=== PATIENT | female | born 1990 | race American Indian/Alaskan Native ===

== ENCOUNTER 2017-01-25 14:37 | Outpatient (CLI) | payer MEDICAID ==
--- NOTE | 2017-01-25 15:52 | Ultrasound Report ---
RIGHT DIGITAL DIAGNOSTIC MAMMOGRAM with CAD and RIGHT BREAST ULTRASOUND: 01/25/17 14:30:00 CLINICAL: 26-year-old with a palpable lump. However, the requisition states mastitis without abscess. COMPARISON:None. FINDINGS: The breast is almost entirely fatty.No mass, suspicious architectural distortion or suspicious calcifications . No mammographic finding at an upper inner palpable marker. Ultrasound of the upper inner right breast was performed and demonstrated a flattened cyst or ectatic duct corresponding to the palpable lump. It is located at 2 o'clock 10 cm from the nipple and measures 9 x 2 x 11 mm. No solid mass. IMPRESSION: A 1.1 cm benign cyst versus short ectatic benign duct at 2 o'clock 10 cm from the nipple. BI-RADS CATEGORY: 2 -- Benign RECOMMENDATION: Clinical follow-up of the palpable area and routine mammographic screening based on ACS guidelines. ACR BI-RADS MAMMOGRAPHIC CODES: 0 = Needs additional imaging evaluation; 1 = Negative; 2 = Benign; 3 = Probably benign; 4 = Suspicious; 5 = Malignant; 6 = Known biopsy-proven malignancy COMMENT: 1. Dense breast tissue, i.e., adenosis, fibrocystic changes, etc., may obscure an underlying neoplasm. 2. Approximately 10% of cancers are not detected with mammography. 3. A negative mammography report should not delay biopsy if a clinically suspicious mass is present. COMMENT: Patient follow-up letters are generated by our [employer] application.
== END 2017-01-25 14:38 | disposition home or self-care (01) ==
LOC: MAMMO 14:37
PROVIDERS: ATTEND Obstetrics & Gynecology
DX: N61.0 Mastitis without abscess (principal); N63 Unspecified lump in breast; Z87.891 Personal history of nicotine dependence
CPT/HCPCS: 76642; G0206

== ENCOUNTER 2018-10-24 20:42 | Inpatient (IN) | payer MEDICAID ==
[2018-10-24] MEDS ORDERED: XYLOCAINE 2% INFILTRATI ONE (22:02)
[2018-10-24] MEDS ORDERED: BRETHINE SUB-Q PRN (22:02)
[2018-10-24] MEDS ORDERED: SUBLIMAZE IV PRN (22:02)
[2018-10-24 22:14] LABS: Hematocrit 33.4 % (30.3-42.9); Mean Corpuscular HGB Conc 33 % (30-34); Mean Corpuscular Volume 78 fl (79-97); Platelet Count 264 K/mm3 (140-440); Red Cell Distribution Width 15.5 % (13.2-15.2)
[2018-10-24] MEDS ORDERED: PITOCin/NS 20 UNIT/1000ML DRIP 20 UNITS/1,000 ML BAG IV SCH (23:00)
--- NOTE | 2018-10-24 23:10 | History and Physical Report ---
History of Present Illness Date of examination: 10/24/18 Date of admission: 10/24/18 20:42 Chief complaint: Here for scheduled induction of labor. History of present illness: 28 year old female here for scheduled induction of labor due to class 3 obesity. Patient has received care at [facility]. Patient states her has been uneventful except for class 3 obesity. Patient states she saw [facility] during her . EDC 10/29/2018. labs are as follows: A+, rubella immune, HIV negative, RPR nonreactive, chlamydia negative, gonorrhea negative, trichomonas negative, GBS negative, hemoglobin electrophoresis negative, HSV 2 IGG negative, hepatitis B surface antigen negative, hepatitis panel negative. 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 denies: smoking, alcohol abuse, prescription drug abuse, IV drug use - Obstetrical History Expected Date of Delivery: 10/29/18 Actual Gestation: 39 Week(s) 2 Day(s) : 5 Para: 3 Hx # Term Pregnancies: 4 Number of Pregnancies: 0 Spontaneous Abortions: 1 Induced : 0 Number of Living Children: 3 Medications and Allergies Allergies Allergy/AdvReac Type Severity Reaction Status Date / Time No Known Allergies Allergy Unverified 05/29/13 10:41 Home Medications Medication Instructions Recorded Confirmed Last Taken Type Ferrous Sulfate [Iron 325 MG] 10/24/18 10/24/18 History Pnv No.95/Ferrous Fum/Folic AC 1 each PO 10/24/18 10/24/18 History [ Formula Tablet] Active Meds: Active Medications Ephedrine Sulfate (Ephedrine Sulfate) 10 mg IV Q2M PRN PRN Reason: Hypotension Fentanyl (Sublimaze) 100 mcg IV Q2H PRN PRN Reason: Labor Pain Lactated Ringer's (Lactated Ringers) 1,000 mls @ 125 mls/hr IV DIRECT RAJAT Oxytocin/Sodium Chloride (Pitocin/Ns 20 Unit/1000ml Drip) 20 units in 1,000 mls @ 125 mls/hr IV DIRECT RAJAT Terbutaline Sulfate (Brethine) 0.25 mg SUB-Q ONCE PRN PRN Reason: Hyperstimulation/Hypertonicity Valacyclovir HCl (Valtrex) 1,000 mg PO BID RAJAT Review of Systems Cardiovascular: no leg edema Genitourinary: no vaginal bleeding, no vaginal discharge, no leakage of fluid Integumentary: other - Vital Signs Vital signs: Vital Signs Pulse BP 100 H 130/77 10/24/18 21:23 10/24/18 21:23 Temp Pulse Resp BP Pulse Ox 98.3 F 83 16 130/77 97 10/24/18 21:25 10/24/18 23:00 10/24/18 21:25 10/24/18 21:25 10/24/18 23:00 - Physical Exam Abdomen: Positive: normal appearance, soft. Negative: distention, tenderness, guarding, rigidity Genitourinary (Female): Negative: perineal/vulvar lesions (small vulvar lesions on righ buttock/perianal arrea (patient states she used NAVARRETE)) Vagina: Positive: normal moisture Uterus: Positive: enlarged Adnexa: left: normal Results Result Diagrams: 10/24/18 21:33 Abnormal lab results 10/24/18 Range/Units 21:33 MCV 78 L (79-97) fl MCH 26 L (28-32) pg RDW 15.5 H (13.2-15.2) % All other labs normal. Assessment and Plan A: at 39 weeks, 2 days gestation. Class 3 obesity. Vulvar lesion. GBS negative. P: Valtrex 1 gram po BID. Discussed with patient lesion in perianal area and culture/labs have been sent but will not have the results right away. Possible sequelae of herpes outbreak discussed with patient in detail. Consulted with Dr. Mayers re: patient. Dr. Mayers states she will examine patient tomorrow. Discussed this plan with patient. Normal BPP and MILTON. NST reactive.
--- NOTE | 2018-10-24 23:49 | Ultrasound Report ---
PROCEDURE: US OB BPP WO NON-STRESS HISTORY: well being FINDINGS: Biophysical profile was performed. Biophysical profile was 8 of 8. cardiac activity is 151 bpm. IMPRESSION: Biophysical profile 8 of 8 This document is electronically signed by Matteo Pérez MD., Oct 24 2018 11:47:58 PM ET
--- NOTE | 2018-10-24 23:49 | Ultrasound Report ---
PROCEDURE: US OB LIMITED HISTORY: MILTON FINDINGS: Real-time ultrasound of the pelvis was performed by transabdominal technique. Amniotic fluid index was 8.0 cm, which is within normal limits. There is a single intrauterine gestation in cephalic lie with cardiac activity of 1 51 bpm. The placenta is anterior and grade 1. IMPRESSION: Amniotic fluid index 8.0 cm This document is electronically signed by Matteo Pérez MD., Oct 24 2018 11:47:24 PM ET
[2018-10-25] MEDS: VALTREX PO SCH ×2 (01:32→12:06)
[2018-10-25] MEDS: LACTATED RINGERS 1,000 ML IV SCH ×4 (01:37→15:04)
--- NOTE | 2018-10-25 01:44 | Event Note ---
Date: 10/25/18 Patient was observed overnight and IOL was not begun due to perianal lesion noted on admission exam. Spontaneous rupture of membranes at 01:10; patient reports she feels contractions. Large amount of clear fluid seen leaking from vagina. Consulted with Dr. Mayers re: SROM. Dr. Mayers states she will do section for patient if patient agrees, due to presence of perianal lesion. Advised patient that Dr. Mayers will perform section. Patient refused section; again discussed with patient in detail the potential sequelae of possible HSV outbreak, including possibility of serious adverse outcomes such as blindness, seizures, mental retardation, or if vaginal occurs with active HSV outbreak (this had all been discussed with patient upon admission as well). Patient states she clearly understands these risks and she states she is willing to assume these risks; patient again refused section. Notified Dr. Mayers that patient refused section and that I have clearly discussed with patient risks of vaginal .
[2018-10-25] MEDS ORDERED: PITOCin/NS 30 UNIT/500ML 30 UNITS/500 ML BAG IV SCH (07:00)
--- NOTE | 2018-10-25 07:00 | Event Note ---
Date: 10/25/18 Contractions have spaced slightly; overnight contractions were every 2-3 minutes per RN. SVE 3-/-1. Patient still refuses section. Discussed with patient risks and benefits of Pitocin augmentation of labor. Patient consented to Pitocin augmentation of labor. Category 1 heart rate tracing.
--- NOTE | 2018-10-25 13:26 | Event Note ---
Date: 10/25/18 [facility] [place] [facility].
--- NOTE | 2018-10-25 13:55 | Event Note ---
Date: 10/25/18 Peds was notified about mother in active labor who has a vaginal lesion suspicious for HSV. Mother is refusing despite extensive counselling by OB team and Peds nurse practitioner. With OB visual coordinator, Elda Alvarenga present, I counselled both mother and father about the risks of HSV after vaginal with primary active vaginal lesions, including the risk of seizures and brain damage. Mother insists that she believes the lesion is as a result of trauma vs infection. I explained that baby will need to remain admitted until we have results from the HSV culture or PCR back which usually takes up to 5 days. Mother absolutely refuses to have her baby remain admitted for that long. She states that she understands the risks and does not believe the lesion is from HSV and therefore refuses to comply with the stated plan of care. Father is in agreement with mother that baby will not remain admitted for 5 days pending culture results. I informed both parents, that I will require at the minimum, collection of blood for HSV PCR and surface HSV cultures and at least 48 hour stay with Fixer Supervisor appointment scheduled and reliable contact information for parents and PCP, prior to baby leaving the hospital. My recommendation remains that baby stays admitted until culture results return, and parents will have to sign their refusal if they do not agree with this plan. Both parents indicated that they understand all the information and mother states she will sign any documents to allow her baby to be discharged after 48 hours.
[2018-10-25] MEDS ORDERED: ZOFRAN IV ONE (14:00)
[2018-10-25] MEDS ORDERED: fentaNYL-BUPIV 2 MCG/ML-0.125% 200 MCG/100 ML BAG EPIDURAL ONE (14:41)
[2018-10-25] MEDS ORDERED: NARCAN 2 MG/2 ML IV PRN (15:04)
--- NOTE | 2018-10-25 15:08 | Anesthesia Consultation ---
Anesthesia Consult and Med Hx Date of service: 10/25/18 - Airway Anesthetic Teeth Evaluation: Good ROM Head & Neck: Adequate Mental/Hyoid Distance: Adequate Mallampati Class: Class III Intubation Access Assessment: Probably Good - Pulmonary Exam CTA: Yes - Cardiac Exam Cardiac Exam: RRR - Pre-Operative Health Status ASA Pre-Surgery Classification: ASA3 Proposed Anesthetic Plan: Epidural - Pulmonary Hx Smoking: No Hx Asthma: No Hx Respiratory Symptoms: No SOB: Yes COPD: No Home Oxygen Therapy: No Hx Pneumonia: No Hx Sleep Apnea: No (snores denies ARCHIE) - Cardiovascular System Hx Hypertension: No Hx Coronary Artery Disease: No Hx Heart Attack/AMI: No Hx Angina: No Hx Percutaneous Transluminal Coronary Angioplasty (PTCA): No Hx Cardia Arrhythmia: No Hx Pacemaker: No Hx Internal Defibrillator: No Hx Valvular Heart Disease: No Hx Heart Murmur: No Hx Peripheral Vascular Disease: No - Central Nervous System Hx Neuromuscular Disorder: No Hx Seizures: No CVA: No Hx Back Pain: Yes Hx Psychiatric Problems: No - Gastrointestinal Hx Ulcer: No Hx Gastroesophageal Reflux Disease: Yes - Endocrine Hx Renal Disease: No Hx End Stage Renal Disease: No Hx Cirrhosis: No Hx Liver Disease: No Hx Insulin Dependent Diabetes: No Hx Non-Insulin Dependent Diabetes: No Hx Thyroid Disease: No Hx Hypothyroidism: No Hx Hyperthyroidism: No - Hematic Hx Anemia: No Hx Sickle Cell Disease: No - Other Systems Hx Alcohol Use: Yes Hx Substance Use: No Hx Cancer: No Hx Obesity: Yes (BMI 49.6)
--- NOTE | 2018-10-25 15:09 | Anesthesia Day of Surgery ---
Anesthesia Day of Surgery - Day of Surgery Patient Examined: Yes Patient H&P Reviewed: Yes Patient is NPO: Yes Beta Blockers: No Cardiac Clearance: No Pulmonary Clearance: No Lai's Test: N/A
--- NOTE | 2018-10-25 15:09 | Post Anesthesia Evaluation ---
- Post Anesthesia Evaluation Patient Participated: Yes Airway Patent: Yes Stable Respiratory Function: Yes Nausea/Vomiting: No Temp > 96.8F: Yes Pain Manageable: Yes Adequeate Hydration: Yes Anesthesia Complications: No Block Receding Appropriately: Yes Patient on Ventilator: No
[2018-10-25] MEDS ORDERED: MILK OF MAGNESIA PO PRN (15:37)
[2018-10-25] MEDS ORDERED: TUCKS PAD TP PRN (15:37)
--- NOTE | 2018-10-25 15:46 | Procedure Note ---
OB Delivery Note - Delivery Date of Delivery: 10/25/18 Surgeon: JYOTI FLORES Estimated blood loss: 200cc - Vaginal Delivery presentation: vertex Delivery position: OA Intrapartum events: other(please specify) (perianal lesion; true knot in cord) Delivery induction: none Delivery augmentation: pitocin Delivery monitor: external FHT, external uterine Route of delivery: Delivery placenta: spontaneous Delivery cord: true knot, 3 umbilical vessels Episiotomy: none Delivery laceration: none Anesthesia: epidural Delivery comments: Spontaneous vaginal delivery at 15:11 of liveborn male infant weighing 7 lb. 2 oz. over intact perineum with apgars of 8/9. Thin meconium fluid; NICU present for delivery. 3 vessel cord double clamped and cut and baby taken to radiant warmer for suctioning. Spontaneous cry and respirations. True knot in cord. Spontaneous delivery of intact placenta and membranes by rosales mechanism. EBL 200 cc. Pitocin to IV fluids after delivery of placenta. Fundus firm and midline. Vaginal sweep negative. No lacerations. Sponge count correct. Mother and baby stable in birthing room.
[2018-10-25] MEDS ORDERED: SODIUM CHLORIDE FLUSH SYRINGE 10 ML IV NR (16:00)
[2018-10-25] MEDS ORDERED: fentaNYL-BUPIV 2 MCG/ML-0.125% 200 MCG/100 ML BAG EPIDURAL SCH (16:00)
[2018-10-25] MEDS: IBUPROFEN PO SCH ×2 (17:47→23:06)
[2018-10-25] MEDS: LANSINOH TP PRN (17:49)
[2018-10-25] MEDS ORDERED: MINERAL OIL PO PRN (22:00)
[2018-10-25] MEDS: COLACE PO SCH (23:06)
[2018-10-25] MEDS: NORCO 5/325 PO PRN (23:06)
[2018-10-26] MEDS: IBUPROFEN PO SCH ×3 (05:41→17:45)
[2018-10-26 05:54] LABS: Hematocrit 33.9 % (30.3-42.9); Hemoglobin 10.8 gm/dl (10.1-14.3)
[2018-10-26] MEDS: COLACE PO SCH ×2 (09:33→22:14)
[2018-10-26] MEDS: NORCO 5/325 PO PRN ×2 (09:34→22:12)
--- NOTE | 2018-10-26 12:00 | Progress Note ---
Assessment and Plan A: day 1 S/P spontaneous vaginal delivery. Anemia secondary to and blood loss. P: Supplement with iron. Continue current management. Subjective - Subjective Date of service: 10/26/18 Principal diagnosis: day 1 S/P spontaneous vaginal delivery Interval history: day 1 S/P spontaneous vaginal delivery. Doing well. Patient reports small amount of lochia. Patient is voiding without difficulty, ambulating well, tolerating a regular diet without nausea or vomiting. Patient denies headache, cough, chest pain, shortness of breath, leg pain, or abdominal pain. Patient reports: appetite normal, voiding normally, pain well controlled, flatus, ambulating normally, no dizzy ambulation, no nauseated : doing well Objective - Vital Signs Latest vital signs: Vital Signs Temp Pulse Resp BP Pulse Ox 10/26/18 07:47 97.8 F 79 18 109/67 98 10/26/18 00:22 98.6 F 74 20 98/52 100 10/25/18 21:34 98.2 F 91 H 20 107/64 98 10/25/18 17:47 18 10/25/18 17:22 98.6 F 73 18 136/70 100 10/25/18 16:30 97.9 F 10/25/18 16:09 85 127/60 10/25/18 15:52 86 112/68 10/25/18 15:21 100 H 89/52 10/25/18 15:16 96 H 124/56 10/25/18 15:11 121 H 121/60 10/25/18 15:06 91 H 120/56 100 10/25/18 15:01 97 H 126/69 100 10/25/18 14:56 82 116/59 100 10/25/18 14:54 93 H 0 L 10/25/18 14:51 86 135/71 100 10/25/18 14:46 90 154/85 99 10/25/18 14:41 90 160/88 99 10/25/18 14:36 89 99 10/25/18 14:33 66 82 L 10/25/18 14:31 104 H 100 10/25/18 14:30 93 H 132/85 10/25/18 14:26 61 92 10/25/18 14:18 85 127/88 10/25/18 13:42 91 H 139/87 10/25/18 13:03 73 142/87 10/25/18 12:48 67 116/66 10/25/18 12:30 75 135/79 10/25/18 12:25 85 134/74 10/25/18 12:06 97.7 F 10/25/18 11:59 84 132/85 Intake and Output 10/25/18 10/26/18 10/26/18 23:59 07:59 15:59 Intake Total 240 360 Output Total 900 1100 Balance -660 -740 Intake: Oral 240 360 Output: Urine 900 1100 Void 900 1100 Other: Total, Intake Amount 240 240 Total, Output Amount 900 500 # Voids Void 1 - Exam Abdomen: Present: normal appearance, soft. Absent: distention, tenderness, rigidity Uterus: Present: normal, firm, fundal height below umbilicus. Absent: bogginess, tenderness Extremities: Present: normal. Absent: tenderness, edema
--- NOTE | 2018-10-26 12:40 | Event Note ---
Date: 10/26/18 Pt. complains of wax in ears and stopped up ears. No drainage, redness, itching, or ear pain. Orders for Claritin and Debrox put in for pt.
[2018-10-26] MEDS ORDERED: EAR WAX DROPS AU SCH (13:00)
[2018-10-26] MEDS: CLARITIN PO SCH (14:48)
[2018-10-26] MEDS: FEOSOL PO SCH (22:15)
[2018-10-27] MEDS: IBUPROFEN PO SCH ×5 (02:45→21:10)
[2018-10-27] MEDS: LANSINOH TP PRN (02:54)
[2018-10-27] MEDS: NORCO 5/325 PO PRN ×2 (07:00→17:03)
[2018-10-27] MEDS: COLACE PO SCH ×2 (09:50→21:09)
[2018-10-27] MEDS: CLARITIN PO SCH (09:51)
[2018-10-27] MEDS: FEOSOL PO SCH ×2 (09:51→21:11)
--- NOTE | 2018-10-27 14:55 | Progress Note ---
Assessment and Plan - Patient Problems (1) (normal spontaneous vaginal delivery) Onset Date: 10/27/18 Current Visit: No Status: Resolved Plan to address problem: A: S/P - PPD #2 Doing well ? herpetic lesion P: May go home today Will follow up on HSV culture Subjective - Subjective Date of service: 10/27/18 Principal diagnosis: day #2 - S/P spontaneous vaginal delivery Interval history: Pt upset that baby has to stay. Patient reports: appetite normal, voiding normally, pain well controlled, flatus, ambulating normally, no dizzy ambulation, no nauseated : doing well, nursing well, bottle feeding Objective - Vital Signs Latest vital signs: Vital Signs Temp Pulse Resp BP BP Pulse Ox 10/27/18 09:50 14 10/27/18 08:10 97.2 F L 79 20 115/71 10/27/18 02:35 98.5 F 72 18 120/79 98 10/26/18 17:45 18 10/26/18 17:01 98.4 F 80 20 133/91 99 Intake and Output 10/26/18 10/27/18 10/27/18 22:59 06:59 14:59 Intake Total 9416 261 4621 Balance 7763 575 3888 Intake: Oral 480 1240 Intake, Free Water 720 360 Other: Total, Intake Amount 480 320 # Voids Void 4 2 1 - Exam Abdomen: Present: normal appearance, soft Uterus: Present: normal, firm, fundal height below umbilicus Extremities: Present: normal
[2018-10-27 17:19] VITALS: BP 135/86
--- NOTE | 2018-10-27 19:32 | Discharge Summary ---
Providers - Providers Date of Admission: 10/24/18 20:42 Date of discharge: 10/27/18 Attending physician: RENAE VAZQUEZ Primary care physician: RENAE VAZQUEZ Hospitalization Reason for admission: induction of labor, IUP at term Delivery: Episiotomy: none Laceration: none Other procedures: none complications: none Discharge diagnosis: IUP at term delivered [place] baby: male Hospital course: Pt is a 28 year old female EDC 10/29/18; EGA 39 0/7 weeks presented to [facility] for scheduled induction of labor due to class 3 obesity. Patient has received care at [place]. Patient states her has been uneventful except for class 3 obesity. Patient states she saw [facility] during her . Patient was observed overnight and IOL was not begun due to perianal lesion noted on admission exam. Spontaneous rupture of membranes at 01:10; patient reports she feels contractions. Large amount of clear fluid seen leaking from vagina. Consulted with Dr. Mayers re: SROM. Dr. Mayers states she will do section for patient if patient agrees, due to presence of perianal lesion. Advised patient that Dr. Mayers will perform section. Patient refused section; again discussed with patient in detail the potential sequelae of possible HSV outbreak, including possibility of serious adverse outcomes such as blindness, seizures, mental retardation, or if vaginal occurs with active HSV outbreak (this had all been discussed with patient upon admission as well). Patient states she clearly understands these risks and she states she is willing to assume these risks; patient again refused section. Notified Dr. Mayers that patient refused section and that I have clearly discussed with patient risks of vaginal . Condition at discharge: Good Disposition: DC-01 TO HOME OR SELFCARE Plan - Discharge Medications Prescriptions: Ferrous Sulfate [Feosol 325 MG tab] 325 mg PO BID #60 tablet Ibuprofen [Motrin 600 MG tab] 600 mg PO Q6H #30 tablet Pnv No.95/Ferrous Fum/Folic AC [ Formula Tablet] 1 tab PO QDAY #30 tablet - Provider Discharge Summary Activity: routine, no sex for 6 weeks, no heavy lifting 4 weeks, no strenuous exercise Diet: routine Instructions: routine Additional instructions: [] Smoking cessation referral if applicable(refer to patient education folder for contact #) [] Refer to [facility] Booklet Call your doctor immediately for: * Fever > 100.5 * Heavy vaginal bleeding ( >1 pad per hour) * Severe persistent headache * Shortness of breath * Reddened, hot, painful area to leg or breast * Drainage or odor from incision. * Keep incision clean and dry at all times and follow doctor's instructions regarding bathing/showering - Follow up plan Follow up: RENAE VAZQUEZ MD [Primary Care Provider] - [address] CNM [Advanced Practice Nurse] - 6 Weeks
[2018-10-28] MEDS: NORCO 5/325 PO PRN (00:02)
== END 2018-10-27 23:55 | disposition home or self-care (01) | DRG 775 ==
LOC: LD 20:42 → OB 10-25 17:14
PROVIDERS: ADMIT Obstetrics & Gynecology; ATTEND Obstetrics & Gynecology
PROC: 10E0XZZ Delivery of Products of Conception, External Approach (ICD-10-PCS; principal; 2018-10-25)
PROC: 3E0R3BZ Introduction of Anesthetic Agent into Spinal Canal, Percutaneous Approach (ICD-10-PCS; 2018-10-25)
PROC: 00HU33Z Insertion of Infusion Device into Spinal Canal, Percutaneous Approach (ICD-10-PCS; 2018-10-25)
DX: O99.214 Obesity complicating childbirth (principal); Z3A.39 39 weeks gestation of pregnancy; Z37.0 Single live birth; E66.9 Obesity, unspecified; O77.0 Labor and delivery complicated by meconium in amniotic fluid; O69.2XX0 Labor and delivery complicated by other cord entanglement, with compression, not applicable or unspecified; K21.9 Gastro-esophageal reflux disease without esophagitis; L98.8 Other specified disorders of the skin and subcutaneous tissue; O75.89 Other specified complications of labor and delivery; O99.62 Diseases of the digestive system complicating childbirth
CPT/HCPCS: 36415; 76815; 76819; 85014; 85018; 85027; 86592; 86850; 86900; 86901; 87255; 87529; G0378; A6250; J2405; J2590; J3010; J7120

== ENCOUNTER 2020-06-02 00:35 | Emergency (ER) | payer MEDICAID ==
[2020-06-02 01:05] VITALS: BP 114/71
--- NOTE | 2020-06-02 01:41 | XRay Report ---
LEFT FOREARM RADIOGRAPH, 2 VIEWS INDICATION / CLINICAL INFORMATION: rule out foreign body COMPARISON: None available. FINDINGS: BONES / JOINT(S): No acute displaced fracture or subluxation. No significant arthritis. SOFT TISSUES: Soft tissue swelling of the distal forearm with overlying bandage material in place. No radiopaque foreign object identified. ADDITIONAL FINDINGS: None. Signer Name: Yue Loya MD Signed: 06/02/2020 1:36 AM Workstation Name: [id number]
[2020-06-02] MEDS ORDERED: IBUPROFEN 800 MG TAB PO ONE (02:04)
[2020-06-02] MEDS ORDERED: LIDOCAINE-MPF (1%) 10 MG/1 ML VIAL 5 ML INFILTRATI ONE (02:04)
--- NOTE | 2020-06-02 02:38 | Emergency Department Report ---
- General Chief Complaint: Wound/Laceration Stated Complaint: LACERATION TO LEFT ARM Source: patient Mode of arrival: Ambulatory Limitations: No Limitations - History of Present Illness Initial Comments: Patient is a 29-year-old -[place] female with a history of morbid obesity who presents to the ED with complaint of acute onset painful bleeding left forearm laceration after a meter that she was hanging on the wall accidentally broke and sliced her left forearm about 3 hours ago. Patient states that she is up-to-date with all her tetanus vaccinations. Patient denies loss of consciousness, fall, dizziness, syncope, seizures, nausea and vomiting, headache, change in vision, or heavy lifting and numbness and tingling or weakness of left arm. -: Sudden, hour(s) (3) Location: other (left forearm) Extremity Location: Left: Forearm (bleeding laceration) Place: home Patient Tetanus UTD: Yes Context: accidental, sharp object use Associated Symptoms: pain, suspect foreign body present. denies: loss of feeling/numbness, unable to move injured part, weakness followed by dizziness, nausea/vomiting, fever - Related Data Home Medications Medication Instructions Recorded Confirmed Last Taken Ferrous Sulfate [Iron 325 MG] 1 tab PO QDAY 10/24/18 10/25/18 10/23/18 Previous Rx's Medication Instructions Recorded Last Taken Type Ferrous Sulfate [Feosol 325 MG tab] 325 mg PO BID #60 tablet 10/27/18 Unknown Rx Ibuprofen [Motrin 600 MG tab] 600 mg PO Q6H #30 tablet 10/27/18 Unknown Rx Pnv No.95/Ferrous Fum/Folic AC 1 tab PO QDAY #30 tablet 10/27/18 Unknown Rx [ Formula Tablet] Ibuprofen [Motrin] 800 mg PO Q8HR PRN #30 tablet 06/02/20 Unknown Rx cephALEXin [Keflex] 500 mg PO Q8HR #30 cap 06/02/20 Unknown Rx Allergies Allergy/AdvReac Type Severity Reaction Status Date / Time No Known Allergies Allergy Unverified 05/29/13 10:41 ED Review of Systems ROS: Stated complaint: LACERATION TO LEFT ARM Other details as noted in HPI Constitutional: denies: chills, fever Eyes: denies: eye pain, eye discharge, vision change ENT: denies: ear pain, throat pain Respiratory: denies: cough, shortness of breath, wheezing Cardiovascular: denies: chest pain, palpitations Endocrine: no symptoms reported Gastrointestinal: denies: abdominal pain, nausea, diarrhea Genitourinary: denies: urgency, dysuria, discharge Musculoskeletal: arthralgia (left forearm pain due to a bleeding laceration). denies: back pain, joint swelling Skin: denies: rash, lesions Neurological: denies: headache, weakness, paresthesias Psychiatric: denies: anxiety, depression Hematological/Lymphatic: denies: easy bleeding, easy bruising ED Past Medical Hx - Past Medical History Previous Medical History?: Yes Hx Hypertension: No Hx Heart Attack/AMI: No Hx Congestive Heart Failure: No Hx Diabetes: No Hx Deep Vein Thrombosis: No Hx Liver Disease: No Hx Renal Disease: No Hx Sickle Cell Disease: No Hx Seizures: No Hx Asthma: No Hx COPD: No Hx HIV: No Additional medical history: Obesity - Surgical History Past Surgical History?: Yes Hx Pacemaker: No Hx Internal Defibrillator: No Additional Surgical History: hernia repair - Social History Smoking Status: Current Every Day Smoker Substance Use Type: None - Medications Home Medications: Home Medications Medication Instructions Recorded Confirmed Last Taken Type Ferrous Sulfate [Iron 325 MG] 1 tab PO QDAY 10/24/18 10/25/18 10/23/18 History Ferrous Sulfate [Feosol 325 MG tab] 325 mg PO BID #60 tablet 10/27/18 Unknown Rx Ibuprofen [Motrin 600 MG tab] 600 mg PO Q6H #30 tablet 10/27/18 Unknown Rx Pnv No.95/Ferrous Fum/Folic AC 1 tab PO QDAY #30 tablet 10/27/18 Unknown Rx [ Formula Tablet] Ibuprofen [Motrin] 800 mg PO Q8HR PRN #30 tablet 06/02/20 Unknown Rx cephALEXin [Keflex] 500 mg PO Q8HR #30 cap 06/02/20 Unknown Rx ED Physical Exam - General Limitations: No Limitations General appearance: alert, in no apparent distress - Head Head exam: Present: atraumatic, normocephalic, normal inspection - Eye Eye exam: Present: normal appearance, PERRL, EOMI Pupils: Present: normal accommodation - ENT ENT exam: Present: normal exam, normal orophraynx, mucous membranes moist, TM's normal bilaterally, normal external ear exam - Neck Neck exam: Present: normal inspection, full ROM - Respiratory Respiratory exam: Present: normal lung sounds bilaterally. Absent: respiratory distress, wheezes, rales, rhonchi, stridor, chest wall tenderness, accessory muscle use, decreased breath sounds, prolonged expiratory - Cardiovascular Cardiovascular Exam: Present: normal rhythm, tachycardia, normal heart sounds. Absent: systolic murmur, diastolic murmur, rubs, gallop - GI/Abdominal GI/Abdominal exam: Present: soft, normal bowel sounds. Absent: tenderness, guarding, rebound, hyperactive bowel sounds, hypoactive bowel sounds - Extremities Exam Extremities exam: Present: normal inspection, full ROM, tenderness (Palpable l eft forearm tenderness due to a bleeding 7 cm laceration), normal capillary refill - Back Exam Back exam: Present: normal inspection, full ROM. Absent: tenderness, CVA tenderness (R), CVA tenderness (L), muscle spasm, paraspinal tenderness, vertebral tenderness - Neurological Exam Neurological exam: Present: alert, oriented X3, CN II-XII intact, normal gait, reflexes normal - Psychiatric Psychiatric exam: Present: normal affect, normal mood - Skin Skin exam: Present: warm, dry, intact, normal color, other (Bleeding 7 cm laceration on left forearm). Absent: rash ED Course Vital Signs 06/02/20 01:04 Temperature 98 F Pulse Rate 108 H Respiratory 18 Rate Blood Pressure 114/71 [Left] O2 Sat by Pulse 99 Oximetry - Laceration /Wound Repair Left Arm Wound Location: upper extremity (left forearm) Wound Length (cm): 7 Wound's Depth, Shape: superficial, irregular Wound Explored: contaminated Irrigated w/ Saline (ccs): 100 Betadine Prep?: Yes Anesthesia: 1% Lidocaine Volume Anesthetic (ccs): 10 Wound Debrided: extensive Wound Repaired With: sutures Suture Size/Type: 3:0, proline Number of Sutures: 17 Layer Closure?: No Sterile Dressing Applied?: Yes Progress: Patient tolerated the procedure well. Patient will discharge home on medications after the wound was sutured and dressed appropriately. Patient was advised return to the ED immediately if symptoms get worse. Patient was advised to follow-up with her primary care physician in 7 to 10 days for reevaluation. Patient was otherwise advised to return to the ED or to her primary care physician in 12 to 14 days for suture removal. ED Medical Decision Making - Radiology Data Radiology results: report reviewed, image reviewed Findings [address] [address] XRay Report Signed Patient: GISSEL GOSS MR#: [id number] : 1990 Acct:[id number] Age/Sex: 29 / F ADM Date: 06/02/20 Loc: ED Attending Dr: Ordering Physician: NOLBERTO JOHNSON MD Date of Service: 06/02/20 Procedure(s): XR forearm LT Accession Number(s): [id number] cc: ED MD ALEX Fluoro Time In Minutes: LEFT FOREARM RADIOGRAPH, 2 VIEWS INDICATION / CLINICAL INFORMATION: rule out foreign body COMPARISON: None available. FINDINGS: BONES / JOINT(S): No acute displaced fracture or subluxation. No significant arthritis. SOFT TISSUES: Soft tissue swelling of the distal forearm with overlying bandage material in place. No radiopaque foreign object identified. ADDITIONAL FINDINGS: None. Signer Name: Yue Loya MD Signed: 06/02/2020 1:36 AM Workstation Name: [id number] Transcribed By: [facility] Dictated By: Yue Loya MD Electronically Authenticated By: Yue Loya MD Signed Date/Time: 06/02/20135 DD/ 4 TD/TT: - Medical Decision Making This - Differential Diagnosis Laceration; Puncture wound; Foreign body in forearm; forearm fracture Critical care attestation.: If time is entered above; I have spent that time in minutes in the direct care of this critically ill patient, excluding procedure time. ED Disposition Clinical Impression: Laceration of left forearm without foreign body Qualifiers: Encounter type: initial encounter Qualified Code(s): S51.812A - Laceration without foreign body of left forearm, initial encounter Puncture wound of left forearm without foreign body Qualifiers: Encounter type: initial encounter Qualified Code(s): S51.832A - Puncture wound without foreign body of left forearm, initial encounter Disposition: DC-01 TO HOME OR SELFCARE Is pt being admited?: No Does the pt Need Aspirin: No Condition: Stable Instructions: Laceration Care, Adult, [id number], Sutured Wound Care, [id number] Additional Instructions: The x-ray of your left forearm showed no acute fractures or subluxations or presence of any foreign bodies in the tissues of the left forearm. Therefore t alena medications with food, drink plenty of fluids and follow-up with your primary care physician in 7 to 10 days for reevaluation. Return to the ED immediately if symptoms get worse. Otherwise follow-up with your primary care physician or return to the ED in 12 to 14 days for suture removal. Prescriptions: cephALEXin [Keflex] 500 mg PO Q8HR #30 cap Ibuprofen [Motrin] 800 mg PO Q8HR PRN #30 tablet PRN Reason: Pain , Severe (7-10) Referrals: [facility] [Provider Group] - 7-10 days Time of Disposition: 02:40 Print Language: ANGUILLAN
== END 2020-06-02 03:31 | disposition home or self-care (01) ==
LOC: ED 00:35
DX: S51.812A Laceration without foreign body of left forearm, initial encounter (principal); S51.832A Puncture wound without foreign body of left forearm, initial encounter; F17.200 Nicotine dependence, unspecified, uncomplicated; Z79.899 Other long term (current) drug therapy; X58.XXXA Exposure to other specified factors, initial encounter; Y93.89 Activity, other specified; Y92.89 Other specified places as the place of occurrence of the external cause; Y99.8 Other external cause status
CPT/HCPCS: 99283